=== PATIENT | female | born 1965 | race African-American/Black ===

== ENCOUNTER 2023-04-02 14:43 | Inpatient (IN) | payer OTHER ==
[2023-04-02 15:13] VITALS: BMI 26.6
[2023-04-02] MEDS ORDERED: NALOXONE HCL (KLOXXADO) 8 MG SPRAY NS PRN (16:04)
[2023-04-02] MEDS ORDERED: MAGNESIUM HYDROX 2400MG/30ML ORAL SUSPENSION 30 ML CUP PO PRN (16:04)
[2023-04-02] MEDS ORDERED: BENZOCAINE/MENTHOL (CHLORASEPTIC ) LOZENGE MM PRN (16:04)
[2023-04-02] MEDS ORDERED: BENZONATATE 200 MG CAPSULE PO PRN (16:04)
[2023-04-02] MEDS ORDERED: IBUPROFEN 400 MG TABLET (FP) PO PRN (16:04)
[2023-04-02] MEDS ORDERED: NALOXONE HCL 0.4 MG/ML VIAL IM PRN (16:04)
[2023-04-02] MEDS ORDERED: ONDANSETRON *ODT* 4 MG TABLET SL PRN (16:04)
[2023-04-02] MEDS ORDERED: METHOCARBAMOL 500 MG TABLET PO PRN (16:04)
[2023-04-02] MEDS ORDERED: hydrOXYzine PAMOATE 25 MG CAPSULE (FP) PO PRN (16:04)
[2023-04-02] MEDS ORDERED: LOPERAMIDE HCL 2 MG CAPSULE PO PRN (16:04)
[2023-04-02] MEDS ORDERED: ACETAMINOPHEN 325 MG TABLET (FP) PO PRN (16:04)
[2023-04-02] MEDS ORDERED: guaiFENesin 600 MG TABLET.ER (FP) PO PRN (16:04)
[2023-04-02] MEDS ORDERED: POLYETHYLENE GLYCOL (HEALTHYLAX) 3350 17 GM PACKET PO PRN (16:04)
[2023-04-02] MEDS ORDERED: ALBUTEROL SO4 HFA INHALER IH PRN (17:07)
[2023-04-02] MEDS ORDERED: cloNIDine HCL 0.1 MG TABLET PO ONE (17:08)
[2023-04-02] MEDS: DICYCLOMINE HCL 10 MG CAPSULE PO PRN (20:26)
[2023-04-02] MEDS ORDERED: cloNIDine HCL 0.1 MG TABLET PO PRN (21:23)
[2023-04-02] MEDS ORDERED: methaDONE HCL 10 MG TABLET (FOR DETOX USE ONLY) PO ONE (21:23)
[2023-04-02] MEDS: THIAMINE HCL 100 MG TABLET (FP) PO SCH (22:18)
[2023-04-02] MEDS: predniSONE 20 MG TABLET (UD) PO SCH (22:18)
[2023-04-02] MEDS: MELATONIN 5 MG TABLETS PO SCH (22:18)
[2023-04-02] MEDS: diazePAM 5 MG TABLET PO SCH (22:20)
[2023-04-03] MEDS: diazePAM 5 MG TABLET PO SCH ×4 (06:00→22:10)
[2023-04-03] MEDS: PRENATAL VITAMINS W/ FOLIC ACID TABLET (FP) PO SCH (10:11)
[2023-04-03] MEDS: predniSONE 20 MG TABLET (UD) PO SCH ×2 (10:11→22:10)
[2023-04-03] MEDS: DICYCLOMINE HCL 10 MG CAPSULE PO PRN (10:12)
[2023-04-03 10:16] LABS: HEMATOCRIT 40.8 % (32.4-45.2); HEMOGLOBIN 13.1 GM/dL (10.7-15.3); MCH 27.6 pg (25.7-33.7); MCHC 32.1 g/dl (32.0-36.0); MEAN CELL VOLUME 85.9 fl (80-96); MEAN PLT VOLUME 7.9 fl (7.5-11.1); PLATELET COUNT 248 10^3/uL (134-434); RBC 4.75 M/mm3 (3.60-5.2); RDW 14.9 % (11.6-15.6); WHITE BLOOD COUNT 6.5 K/mm3 (4.0-10.0)
[2023-04-03 12:16] LABS: CHLORIDE 106 mmol/L (98-107); POTASSIUM 4.6 mmol/L (3.5-5.1); SODIUM 140 mmol/L (136-145)
[2023-04-03 12:28] LABS: ALBUMIN 3.7 g/dl (3.4-5.0); ANION GAP 5 mmol/L (4-13); BLOOD UREA NITROGEN 11.3 mg/dL (7-18); CALCIUM 10.3 mg/dL (8.5-10.1); CO2 29 mmol/L (21-32); GLUCOSE,RANDOM 131 mg/dL (74-106)
[2023-04-03 12:31] LABS: CREATININE 0.9 mg/dL (0.55-1.3); SGOT/AST 13 U/L (15-37); SGPT/ALT 33 U/L (13-61)
[2023-04-03 12:33] LABS: ALK PHOS 79 U/L (45-117); BILIRUBIN,TOTAL 0.6 mg/dL (0.2-1)
[2023-04-03] MEDS: MAG HYDROX/AL HYDROX/SIMETH 30 ML UNIT-DOSE CUP PO PRN (16:43)
[2023-04-03] MEDS: MELATONIN 5 MG TABLETS PO SCH (22:10)
[2023-04-03] MEDS: THIAMINE HCL 100 MG TABLET (FP) PO SCH (22:10)
[2023-04-04] MEDS: diazePAM 5 MG TABLET PO SCH ×3 (05:17→22:35)
[2023-04-04] MEDS: MAG HYDROX/AL HYDROX/SIMETH 30 ML UNIT-DOSE CUP PO PRN (06:26)
[2023-04-04] MEDS ORDERED: methaDONE HCL 10 MG TABLET (FOR DETOX USE ONLY) PO ONE (10:00)
[2023-04-04] MEDS: PRENATAL VITAMINS W/ FOLIC ACID TABLET (FP) PO SCH (10:08)
[2023-04-04] MEDS: DICYCLOMINE HCL 10 MG CAPSULE PO PRN ×2 (10:38→22:35)
[2023-04-04] MEDS: THIAMINE HCL 100 MG TABLET (FP) PO SCH (22:35)
[2023-04-04] MEDS: MELATONIN 5 MG TABLETS PO SCH (22:35)
[2023-04-05] MEDS: diazePAM 5 MG TABLET PO SCH ×2 (05:31→18:28)
[2023-04-05] MEDS: DICYCLOMINE HCL 10 MG CAPSULE PO PRN ×2 (07:04→13:18)
[2023-04-05] MEDS: MAG HYDROX/AL HYDROX/SIMETH 30 ML UNIT-DOSE CUP PO PRN (08:06)
[2023-04-05] MEDS ORDERED: ONDANSETRON *ODT* 4 MG TABLET SL ONE (09:00)
[2023-04-05] MEDS: diazePAM 5 MG TABLET PO PRN ×2 (09:42→13:18)
[2023-04-05] MEDS: PRENATAL VITAMINS W/ FOLIC ACID TABLET (FP) PO SCH (09:44)
[2023-04-05] MEDS ORDERED: TRIMETHOBENZAMIDE HCL 200MG/2ML INJ IM ONE (10:47)
[2023-04-05] MEDS: BISMUTH SUBSALICYLATE 524 MG/30 ML PO PRN ×2 (11:55→15:30)
[2023-04-05] MEDS: cloNIDine HCL 0.1 MG TABLET PO PRN (19:00)
[2023-04-05] MEDS: THIAMINE HCL 100 MG TABLET (FP) PO SCH (22:57)
[2023-04-05] MEDS: MELATONIN 5 MG TABLETS PO SCH (22:57)
[2023-04-06] MEDS: IBUPROFEN 600 MG TABLET (FP) PO PRN ×2 (05:53→19:33)
[2023-04-06] MEDS ORDERED: diazePAM 5 MG TABLET PO ONE (06:00)
[2023-04-06] MEDS ORDERED: methaDONE HCL 10 MG TABLET (FOR DETOX USE ONLY) PO ONE (10:00)
[2023-04-06] MEDS: cloNIDine HCL 0.1 MG TABLET PO PRN (10:26)
[2023-04-06] MEDS: PRENATAL VITAMINS W/ FOLIC ACID TABLET (FP) PO SCH (10:26)
[2023-04-06] MEDS: THIAMINE HCL 100 MG TABLET (FP) PO SCH (22:25)
[2023-04-06] MEDS: MELATONIN 5 MG TABLETS PO SCH (22:25)
[2023-04-07] MEDS: cloNIDine HCL 0.1 MG TABLET PO PRN (02:08)
[2023-04-07] MEDS: PRENATAL VITAMINS W/ FOLIC ACID TABLET (FP) PO SCH (09:11)
[2023-04-07 09:41] VITALS: BP 110/70; PULSE 80; RESP 17; TEMP 98.1
== END 2023-04-07 10:07 | disposition home or self-care (01) | DRG 773 ==
LOC: YASAS 14:43 → Y3N 16:34
PROVIDERS: ADMIT Allergy & Immunology; ATTEND Allergy & Immunology
PROC: HZ2ZZZZ Detoxification Services for Substance Abuse Treatment (ICD-10-PCS; principal; 2023-04-02)
DX: F11.23 Opioid dependence with withdrawal (principal); F10.230 Alcohol dependence with withdrawal, uncomplicated; F13.20 Sedative, hypnotic or anxiolytic dependence, uncomplicated; U07.1 COVID-19; J41.0 Simple chronic bronchitis; Z87.891 Personal history of nicotine dependence
CPT/HCPCS: 36415; 71046-TC-FY; 80053; 80307; 85027; 86780; 87635; 87811; 93005; 93010; Q0162